=== PATIENT | male | born 1945 | race Caucasian/White ===

== ENCOUNTER 2018-05-06 18:25 | Inpatient (IN) | payer MEDICARE | END 2018-05-08 11:34 | disposition E | LOC: ER 18:25 → ED HOLD 05-07 03:28 → CICU 2S 05-07 04:32 | PROC: 0WJP0ZZ Inspection of Gastrointestinal Tract, Open Approach (ICD-10-PCS; principal; 2018-05-07 05:46) | DX: K52.89 Other specified noninfective gastroenteritis and colitis (principal); K65.0 Generalized (acute) peritonitis; N17.9 Acute kidney failure, unspecified; E87.2 Acidosis ==